=== PATIENT | male | born 1985 | race Caucasian/White ===

== ENCOUNTER 2017-01-03 11:07 | Emergency (ER) | payer OTHER, MEDICAID ==
[~2017-01-03] VITALS: Ht 188 cm; Wt 68.0 kg
[2017-01-03 12:21] LABS: Basophils # (auto) 0 uL; Basophils % (auto) 0.2 % (0.0-2.0); CONDITION Y; Eosinophils # (auto) 0.1 uL; Eosinophils % (auto) 0.9 % (0.0-7.0); Hematocrit 42.6 % (41.0-53.0); Hemoglobin 14.4 g/dL (13.5-17.5); Lymphocytes # (auto) 1.8 uL; Lymphocytes % (auto) 29.9 % (10.0-50.0); Mean Corpuscular Hemoglobin 28.9 pg (28.0-32.0); Mean Corpuscular Hgb Conc. 33.8 g/dL (32.0-36.0); Mean Corpuscular Volume 85.5 fL (80.0-100.0); Monocytes # (auto) 0.4 uL; Monocytes % (auto) 7.4 % (0.0-12.0); Neutrophils # (auto) 3.8 uL; Neutrophils % (auto) 61.6 % (37.0-80.0); Platelet Count (auto) 218 10^3/uL (140-450); Red Cell Distribution Width 14.3 % (11.6-16.0); White Blood Cell 6.1 10^3/uL (4.4-10.8)
[2017-01-03 12:23] LABS: Acetaminophen < 2.0 ug/mL (10-30); Albumin 3.9 g/dL (3.4-5.0); Calcium 8.7 mg/dL (8.5-10.1); Potassium 4.2 mmol/L (3.5-5.1); Salicylate < 1.7 mg/dL (2.8-20.0)
[2017-01-03 12:26] LABS: Bilirubin, Total 0.4 mg/dL (0.2-1.0); Total Protein 7.1 g/dL (6.4-8.2)
[2017-01-03 12:51] LABS: Urine Bilirubin Negative (Negative); Urine Blood Negative /uL (Negative); Urine Color Yellow (Yellow); Urine Glucose Normal (Normal); Urine Ketone Negative (Negative); Urine Nitrite Negative (Negative); Urine RBC <1 /hpf (0 - 3); Urine Urobilinogen Normal (Negative)
[2017-01-03 15:30] VITALS: BP 132/69
== END 2017-01-03 16:19 | disposition home or self-care (01) ==
LOC: ER 11:07
DX: F20.9 Schizophrenia, unspecified (principal)
CPT/HCPCS: 36415; 80053; 80307; 80329; 81001; 85025